=== PATIENT | male | born 1985 | race Hispanic/Latino ===

== ENCOUNTER 2024-12-10 09:20 | Emergency (ER) | payer SELFPAY ==
[~2024-12-10] VITALS: Ht 177.8 cm; Wt 77.1 kg
[2024-12-10] MEDS ORDERED: levoFLOXacin 500 MG TABLET PO SCH (10:00)
[2024-12-10 10:15] LABS: ADD UA MICROSCOPIC YES; APPEARANCE,URINE CLEAR (CLEAR); BILIRUBIN,URINE NEGATIVE (NEGATIVE); COLOR,URINE YELLOW (YELLOW); GLUCOSE, URINE (UA) >=1000 mg/dL (NEGATIVE); KETONES,URINE 150 mg/dL (NEGATIVE); LEUKOCYTE ESTERASE ,URINE 250 Leu/uL (NEGATIVE); NITRATE,URINE NEGATIVE (NEGATIVE); OCCULT BLOOD,URINE NEGATIVE (NEGATIVE); PROTEIN,URINE 100 mg/dL (NEGATIVE)
[2024-12-10 10:16] LABS: BACTERIA,URINE RARE /HPF (None Seen); MUCUS,URINE RARE LPF (None Seen); SQUAMOUS EPITHELIAL CELL,UR FEW /HPF (0-2); WBC,URINE 51-100 /HPF (0-1)
[2024-12-10] MEDS ORDERED: SULF1TAB42 PO (10:20)
--- NOTE | 2024-12-10 10:21 | ERN ---
General Chief Complaint: Testicular Injury/Pain Stated Complaint: TESTICULAR PAIN Time Seen by MD: 09:23 History of Present Illness Initial Comments Mr. Rachel is a 39-year-old male who presents today with a left testicular pain, ongoing for several days. He was recently evaluated at [facility] where he an ultrasound revealed bilateral hydroceles and presumed epididymitis. He was given an injection of Toradol and prescribed oral antibiotics but did not feel his prescription due to financial constraints. He has instead been taking leftover penicillin at home which is not appropriate first-line for this condition. He is now reporting worsening testicular swelling no improvement in pain and difficulty urinating with urine appearing dark and cloudy. He denies penile discharge, flank pain, fever, chills or nausea. He does report a history of type 2 diabetes which is poorly controlled. 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 but reports his car broke down he has been unable to work or afford his medicine Allergies: Coded Allergies: No Known Drug Allergies (Unverified Allergy, Unknown, 12/10/24) Past Medical History Past Medical History: Diabetes-Type II Past Surgical History: None ROS Dictation Constitutional: Negative for fever,chills, and weight loss Eyes: Negative for injury, pain,redness, and discharge ENT: Negative for injury,pain or swelling Cardiovascular: Negative for chest pain, palpitations, and edema Respiratory: Negative for shortness of breath, cough, and wheezing, Abdomen/GI: Negative for abdominal pain, nausea, vomiting, diarrhea, and constipation Back: Negative for injury and pain positive for testicular swelling in the pain, dysuria, dark urine. Negative for injury, bleeding and discharge MS/Extremity: Negative for injury and deformity Skin: Negative for rash, and discoloration Neuro: Negative for headache, weakness, numbness, tingling, and seizure Psych: Negative for suicide ideation, homicidal ideation, and hallucinations Physical Exam Physical Exam Dictation General: awake, alert, NAD Head/Face: Normocephalic, atraumatic Eyes: PERRL, EOMI, vision at baseline ENT: oral cavity clear, TMs clear, no signs of infection Neck: Trachea midline, supple, no nuchal rigidity Cardiovascular: RRR, normal S1/S2, No MRGs, no JVD Respiratory: CTAB, no respiratory distress, No rales or wheezes Abdomen: Soft, non-tender, non-distended, normal bowel sounds, no guarding or rebound. Skin: Warm, dry, normal turgor, no rash MS/Extremity: Left testicle is enlarged and tender, no crepitus, torsion or fluctuance. Patient has bilateral hydroceles noted. Foreskin with mild erythema and tightness suggestive of early phimosis Neuro: COAx4, GCS 15, strength 5/5, CN 2-12 intact, normal cerebellar exam, normal gait, Psych: Normal behavior, mood, and affect normal Results Laboratory and Microbiology Lab and Micro Result Laboratory Tests Test 12/10/24 09:50 Urine Color YELLOW (YELLOW) Urine Appearance CLEAR (CLEAR) Urine pH 6.0 (5.0-8.0) Urine Specific [place] 1.032 (1.001-1.031) Urine Protein 100 mg/dL (NEGATIVE) H Urine Glucose (UA) >=1000 mg/dL (NEGATIVE) H Urine Ketones 150 mg/dL (NEGATIVE) H Urine Occult Blood NEGATIVE (NEGATIVE) Urine Nitrate NEGATIVE (NEGATIVE) Urine Bilirubin NEGATIVE mg/dL (NEGATIVE) Urine Urobilinogen 4.0 mg/dL (0.2-1.0) H Urine Leukocyte Esterase 250 Jet/uL (NEGATIVE) H MDM This is a case of recurrent or untreated epididymitis previously diagnosed via ultrasound worsening due to lack of antibiotic therapy. Patient is diabetic further increasing the risk of urological abscess, scrotal cellulitis or Celeste gangrene. He has no signs of systemic infection or torsion currently but urinalysis shows signs of active infection. No surgical emergency is noted but patient has noncompliance with antibiotics due to financial issues is the main. Improvement. Patient will be given Bactrim as this is the only affordable medicine that he can take that will cover symptoms. ED Course Orders Procedure Category Date Status Time Urinalysis Profile LAB 12/10/24 Complete 09:49 Levofloxacin 500mg PHA 12/10/24 In Process Tab (Levaquin 500mg T 10:00 Ketorolac PHA 12/10/24 Complete Tromethamine 30mg/Ml 10:00 Sulfamethox-Tmp Ds PHA 12/10/24 In Process 800/160 Tab (Bactrim 10:30 Current Medications Medications (Trade) Dose Ordered Sig/Lorena Route PRN Reason Start Time Stop Time Status Last Admin Dose Admin Ketorolac Tromethamine (toRADol) 30 mg ONCE ONCE IM 12/10/24 10:00 12/10/24 10:01 DC Levofloxacin (LEvaquIN 500MG TAB) 500 mg ONCE PO 12/10/24 10:00 12/20/24 09:59 Trimethoprim/ Sulfamethoxazole (BactRIM DS) 1 tab ONCE ONCE PO 12/10/24 10:30 12/10/24 10:31 Vital Signs Date Time Temp Pulse Resp B/P (MAP) Pulse Ox O2 Delivery O2 Flow Rate FiO2 12/10/24 09:22 98.2 104 16 153/70 98 Room Air* 0 21 12/10/24 09:22 98.2 104 16 153/70 98 0 DX & DISP Disposition: Discharge Departure Impression: Primary Impression: Epididymitis Additional Impression: Bilateral hydrocele Condition: Stable Scripts Sulfamethoxazole/Trimethoprim (Bactrim Ds Tablet) 800 Mg-160 Mg Tablet 1 TAB PO BID for 10 Days, #20 TAB 0 Refills Prov: YOSELIN CHONG MD 12/10/24 Referrals: SELF,REFERRAL (PCP) YOSELIN CHONG MD December 10, 2024 10:21
[2024-12-10] MEDS: ketOROlac 30MG VIAL (30MG/ML) IM ONE (10:22)
[2024-12-10] MEDS: sulfaMETHOX-TMP DS 800/160 TAB PO ONE (10:24)
[2024-12-10 10:34] VITALS: BP 147/86; PULSE 88; RESP 18; TEMP 97.6; O2SAT 98
== END 2024-12-10 11:00 | disposition home or self-care (01) ==
LOC: EDH 09:20
DX: N45.1 Epididymitis (principal); N43.3 Hydrocele, unspecified; E11.9 Type 2 diabetes mellitus without complications
CPT/HCPCS: 99283; 87086 ×2; 87186; 81001; 96372; J1885